=== PATIENT | female | born 1950 | race Two or more races ===

== ENCOUNTER 2018-10-20 06:59 | Emergency (ER) | payer OTHER ==
[~2018-10-20] VITALS: Ht 157.5 cm; Wt 82.6 kg
[~2018-10-20 06:59] MED LIST: LISINOPRIL20 MG; NORVASC2.5 M1; ZESTRIL2.5 MG
[2018-10-20] MEDS ORDERED: SKELAXIN800 MG PO (13:28)
[2018-10-20] MEDS ORDERED: KETO10TA2 PO (13:28)
== END 2018-10-20 13:48 | disposition home or self-care (01) ==
LOC: ER 06:59
DX: M25.561 Pain in right knee (principal); M79.661 Pain in right lower leg

== ENCOUNTER 2019-05-24 07:23 | Emergency (ER) | payer OTHER ==
[~2019-05-24] VITALS: Ht 160 cm; Wt 86.2 kg
[~2019-05-24 07:23] MED LIST changes: +KETO10TA2 PO; +SKELAXIN800 MG PO
[2019-05-24] MEDS ORDERED: ASA81 MG (07:39)
== END 2019-05-24 12:04 | disposition home or self-care (01) ==
LOC: ER 07:23
DX: M25.561 Pain in right knee (principal); I82.491 Acute embolism and thrombosis of other specified deep vein of right lower extremity; I87.2 Venous insufficiency (chronic) (peripheral)

== ENCOUNTER → 2019-08-14 | Emergency (ER) | payer OTHER ==
[~2019-08-14] VITALS: Ht 160 cm; Wt 88.0 kg
[~2019-08-14] MED LIST changes: +ASA81 MG; +ULTRACET PO
== END | disposition home or self-care (01) ==
LOC: ER 02:01
DX: M75.101 Unspecified rotator cuff tear or rupture of right shoulder, not specified as traumatic (principal)

== ENCOUNTER → 2019-08-16 | Outpatient (CLI) | payer OTHER | END | disposition home or self-care (01) | LOC: RAD 09:21 | DX: R07.89 Other chest pain (principal) ==

== ENCOUNTER 2019-11-02 08:38 | Outpatient (CLI) | payer OTHER | END 2019-11-02 09:00 | disposition home or self-care (01) | LOC: WOUND MED 08:38 | PROVIDERS: ATTEND Specialist | DX: L98.492 Non-pressure chronic ulcer of skin of other sites with fat layer exposed (principal) | CPT/HCPCS: G0463; A4554; A4930; A6216; A6219 ==

== ENCOUNTER 2019-11-06 07:28 | Outpatient (CLI) | payer OTHER | END 2019-11-06 08:10 | disposition home or self-care (01) | LOC: WOUND MED 07:28 | PROVIDERS: ATTEND Specialist | DX: L98.492 Non-pressure chronic ulcer of skin of other sites with fat layer exposed (principal) | CPT/HCPCS: 97602; A4554; A4930; A6216; A6219 ==

== ENCOUNTER 2019-11-09 08:06 | Outpatient (CLI) | payer OTHER | END 2019-11-09 09:44 | disposition home or self-care (01) | LOC: WOUND MED 08:06 | PROVIDERS: ATTEND Specialist | DX: L98.492 Non-pressure chronic ulcer of skin of other sites with fat layer exposed (principal) | CPT/HCPCS: 11042; A4554; A4930; A6216; A6219 ==

== ENCOUNTER 2019-11-13 08:31 | Outpatient (CLI) | payer OTHER | END 2019-11-13 09:00 | disposition home or self-care (01) | LOC: WOUND MED 08:31 | PROVIDERS: ATTEND Specialist | DX: L98.492 Non-pressure chronic ulcer of skin of other sites with fat layer exposed (principal) | CPT/HCPCS: 97602; A4554; A4930; A6216; A6219 ==

== ENCOUNTER 2019-11-16 07:40 | Outpatient (CLI) | payer OTHER | END 2019-11-16 09:00 | disposition home or self-care (01) | LOC: WOUND MED 07:40 | PROVIDERS: ATTEND Specialist | DX: L98.492 Non-pressure chronic ulcer of skin of other sites with fat layer exposed (principal) | CPT/HCPCS: 11042; A4554; A4930; A6216; A6219 ==

== ENCOUNTER 2019-11-20 09:04 | Outpatient (CLI) | payer OTHER | END 2019-11-20 10:44 | disposition home or self-care (01) | LOC: WOUND MED 09:04 | PROVIDERS: ATTEND Specialist | DX: L98.492 Non-pressure chronic ulcer of skin of other sites with fat layer exposed (principal) | CPT/HCPCS: 97602; A4554; A4930; A6216; A6219 ==

== ENCOUNTER 2019-11-23 07:26 | Outpatient (CLI) | payer OTHER | END 2019-11-23 11:43 | disposition home or self-care (01) | LOC: WOUND MED 07:26 | PROVIDERS: ATTEND Specialist | DX: L98.492 Non-pressure chronic ulcer of skin of other sites with fat layer exposed (principal) | CPT/HCPCS: 11042; A4554; A4930; A6216; A6219 ==

== ENCOUNTER 2019-11-27 11:16 | Outpatient (CLI) | payer OTHER | END 2019-11-27 12:30 | disposition home or self-care (01) | LOC: WOUND MED 11:16 | PROVIDERS: ATTEND Specialist | DX: L98.492 Non-pressure chronic ulcer of skin of other sites with fat layer exposed (principal) | CPT/HCPCS: 97602; A4554; A4930; A6216; A6219 ==

== ENCOUNTER 2019-12-07 08:02 | Outpatient (CLI) | payer OTHER | END 2019-12-07 09:00 | disposition home or self-care (01) | LOC: WOUND MED 08:02 | PROVIDERS: ATTEND Specialist | DX: L98.492 Non-pressure chronic ulcer of skin of other sites with fat layer exposed (principal) | CPT/HCPCS: G0463; A4554; A4930; A6216 ==

== ENCOUNTER 2019-12-12 10:11 | Outpatient (CLI) | payer OTHER | END 2019-12-12 10:27 | disposition home or self-care (01) | LOC: SONOGRAMA 10:11 | PROVIDERS: ATTEND Physical Medicine & Rehabilitation | DX: M75.121 Complete rotator cuff tear or rupture of right shoulder, not specified as traumatic (principal); M75.122 Complete rotator cuff tear or rupture of left shoulder, not specified as traumatic ==

== ENCOUNTER 2020-05-28 07:23 | Outpatient (CLI) | payer OTHER | END 2020-05-28 10:00 | disposition home or self-care (01) | LOC: WOUND MED 07:23 | PROVIDERS: ATTEND Specialist | DX: L97.512 Non-pressure chronic ulcer of other part of right foot with fat layer exposed (principal) | CPT/HCPCS: G0463; A4554; A4930; A6196; A6216; A6219 ==

== ENCOUNTER 2020-05-31 07:01 | Outpatient (CLI) | payer OTHER | END 2020-05-31 08:00 | disposition home or self-care (01) | LOC: WOUND MED 07:01 | PROVIDERS: ATTEND Specialist | DX: L97.512 Non-pressure chronic ulcer of other part of right foot with fat layer exposed (principal) | CPT/HCPCS: 97602; A4554; A4930; A6196; A6216; A6219 ==

== ENCOUNTER 2020-06-04 08:11 | Outpatient (CLI) | payer OTHER | END 2020-06-04 09:30 | disposition home or self-care (01) | LOC: WOUND MED 08:11 | PROVIDERS: ATTEND Specialist | DX: L97.512 Non-pressure chronic ulcer of other part of right foot with fat layer exposed (principal) | CPT/HCPCS: 11042; A4554; A4930; A6216; A6219 ==

== ENCOUNTER 2020-06-07 07:15 | Outpatient (CLI) | payer OTHER | END 2020-06-07 08:00 | disposition home or self-care (01) | LOC: WOUND MED 07:15 | PROVIDERS: ATTEND Specialist | DX: L97.512 Non-pressure chronic ulcer of other part of right foot with fat layer exposed (principal) | CPT/HCPCS: 97602; A4554; A4930; A6196; A6216; A6219 ==

== ENCOUNTER 2020-06-11 07:29 | Outpatient (CLI) | payer OTHER | END 2020-06-11 08:30 | disposition home or self-care (01) | LOC: WOUND MED 07:29 | PROVIDERS: ATTEND Specialist | DX: L97.512 Non-pressure chronic ulcer of other part of right foot with fat layer exposed (principal) | CPT/HCPCS: 11042; A4554; A4930; A6212; A6216; A6219 ==

== ENCOUNTER 2020-06-14 06:14 | Outpatient (CLI) | payer OTHER | END 2020-06-14 08:00 | disposition home or self-care (01) | LOC: WOUND MED 06:14 | PROVIDERS: ATTEND Specialist | DX: L97.512 Non-pressure chronic ulcer of other part of right foot with fat layer exposed (principal) | CPT/HCPCS: 97602; A4554; A4930; A6216; A6219 ==

== ENCOUNTER 2020-06-18 06:58 | Outpatient (CLI) | payer OTHER | END 2020-06-18 08:00 | disposition home or self-care (01) | LOC: WOUND MED 06:58 | PROVIDERS: ATTEND Specialist | DX: L97.512 Non-pressure chronic ulcer of other part of right foot with fat layer exposed (principal) | CPT/HCPCS: 11042; A4554; A4930; A6212; A6216; A6219 ==

== ENCOUNTER 2020-06-21 07:03 | Outpatient (CLI) | payer OTHER | END 2020-06-21 08:33 | disposition home or self-care (01) | LOC: WOUND MED 07:03 | PROVIDERS: ATTEND Specialist | DX: L97.512 Non-pressure chronic ulcer of other part of right foot with fat layer exposed (principal) | CPT/HCPCS: 97602; A4554; A4930; A6216; A6219 ==

== ENCOUNTER 2020-06-25 07:15 | Outpatient (CLI) | payer OTHER | END 2020-06-25 08:00 | disposition home or self-care (01) | LOC: WOUND MED 07:15 | PROVIDERS: ATTEND Specialist | DX: L97.512 Non-pressure chronic ulcer of other part of right foot with fat layer exposed (principal) | CPT/HCPCS: 11042; A4554; A4930; A6212; A6216 ==

== ENCOUNTER 2020-07-02 09:17 | Outpatient (CLI) | payer OTHER | END 2020-07-02 10:00 | disposition home or self-care (01) | LOC: WOUND MED 09:17 | PROVIDERS: ATTEND Specialist | DX: L97.512 Non-pressure chronic ulcer of other part of right foot with fat layer exposed (principal) | CPT/HCPCS: 11042; A4554; A4930; A6212; A6216; A6219 ==

== ENCOUNTER 2020-07-09 08:39 | Outpatient (CLI) | payer OTHER | END 2020-07-09 09:00 | disposition home or self-care (01) | LOC: WOUND MED 08:39 | PROVIDERS: ATTEND Specialist | DX: L97.512 Non-pressure chronic ulcer of other part of right foot with fat layer exposed (principal) | CPT/HCPCS: G0463; A4554; A4930; A6216 ==

== ENCOUNTER 2020-11-05 09:26 | Emergency (ER) | payer OTHER ==
[~2020-11-05] VITALS: Ht 157.5 cm; Wt 87.1 kg
[2020-11-05] MEDS ORDERED: AMOX-CLAV 875-1 EACH PO (13:35)
[2020-11-05] MEDS ORDERED: TORADOL60 MG IM (13:35)
== END 2020-11-05 13:37 ==
LOC: ER 09:26
DX: K11.20 Sialoadenitis, unspecified (principal); B34.9 Viral infection, unspecified

== ENCOUNTER 2020-12-20 10:08 | Outpatient (CLI) | payer OTHER ==
[~2020-12-20 10:08] MED LIST changes: +AMOX-CLAV 875-1 EACH PO; +TORADOL60 MG IM
== END 2021-01-04 10:09 | disposition home or self-care (01) ==
LOC: WOUND MED 10:08
PROVIDERS: ATTEND Specialist
DX: E11.621 Type 2 diabetes mellitus with foot ulcer (principal); L97.522 Non-pressure chronic ulcer of other part of left foot with fat layer exposed; R60.0 Localized edema
CPT/HCPCS: 11042; A4554; A4930; A6216; A6219

== ENCOUNTER 2022-06-18 10:28 | Outpatient (CLI) | payer OTHER | END 2022-06-18 10:34 | disposition home or self-care (01) | LOC: RAD 10:28 | PROVIDERS: ATTEND Ophthalmology | DX: H25.011 Cortical age-related cataract, right eye (principal); Z98.41 Cataract extraction status, right eye ==

== ENCOUNTER 2022-12-25 07:53 | Outpatient (CLI) | payer OTHER | END 2022-12-25 07:55 | disposition home or self-care (01) | LOC: EKG 07:53 | PROVIDERS: ATTEND Ophthalmology | DX: I11.9 Hypertensive heart disease without heart failure (principal) ==

== ENCOUNTER 2023-12-30 05:22 | Emergency (ER) | payer OTHER ==
[~2023-12-30] VITALS: Ht 157.5 cm; Wt 85.7 kg
[2023-12-30] MEDS ORDERED: METFORMIN HCL500 M3 PO (05:47)
[2023-12-30] MEDS ORDERED: KETOROLAC TROMETHAMINE 60 MG VIAL IM STA (07:47)
[2023-12-30] MEDS ORDERED: KETOROLAC TROMETHAMINE 60 MG VIAL IM ONE (08:01)
[2023-12-30 08:22] LABS: URINE APPEARANCE Clear; URINE BILIRRUBIN Negative (NEGATIVE); URINE BLOOD Trace; URINE COLOR Yellow; URINE GLUCOSE Negative (NEGATIVE); URINE KETONE Negative (NEGATIVE); URINE LEUKOCYTE Negative; URINE NITRATE Negative; URINE PROTEIN Negative (NEGATIVE); URINE UROBILINOGEN 0.2 E.U./dl
[2023-12-30 08:25] LABS: URINE BACTERIA 127.2 uL (0.0-1933); URINE EPITHELIAL CELLS 3.5 uL (0.0-38.8); URINE WBC 6.3 uL (0.0-23.2)
[2023-12-30 08:27] LABS: URINE CAST 1.06 uL (0.0-1.40); URINE RBC 0.7 uL (0.0-20.8)
[2023-12-30 08:30] LABS: HEMOGLOBIN 12.7 g/dL (12.0-15.00); MEAN CELL VOLUME 96.2 fL (80.00-100.00); MEAN CORPUSCULAR HEMOGLOBIN 32.2 pg (27.00-32.0); MEAN CORPUSCULAR HGB CONC 33.4 g/dl (32.0-36.0); PLATELET COUNT 360 K/uL (150-450); RED BLOOD COUNT 3.95 M/uL (4.00-6.00); RED CELL DISTRIBUTION WIDTH 13.3 % (11.5-14.5)
[2023-12-30 09:06] LABS: CALCIUM 9.5 mg/dL (8.5-10.1); CREATININE SERUM 1.52 mg/dL (0.55-1.02); GFR 33.62; POTASSIUM 5.1 mEq/L (3.5-5.1)
[2023-12-30] MEDS ORDERED: BACLOFEN5 MG PO (09:49)
== END 2023-12-30 09:56 | disposition home or self-care (01) ==
LOC: ER 05:24
PROVIDERS: General Practice
DX: M54.89 Other dorsalgia (principal); M51.36 Other intervertebral disc degeneration, lumbar region; I10 Essential (primary) hypertension; E11.9 Type 2 diabetes mellitus without complications; Z79.84 Long term (current) use of oral hypoglycemic drugs; Z88.8 Allergy status to other drugs, medicaments and biological substances
CPT/HCPCS: 36415; 72100; 76775; 96372; 99284; J1885

== ENCOUNTER 2024-01-03 08:30 | Emergency (ER) | payer OTHER ==
[~2024-01-03] VITALS: Ht 157.5 cm; Wt 85.7 kg
[~2024-01-03 08:30] MED LIST changes: +BACLOFEN5 MG PO; +METFORMIN HCL500 M3 PO
[2024-01-03] MEDS ORDERED: DEXAMETHASONE SODIUM PHOSPHATE 4 MG/ML VIAL IM STA (09:57)
[2024-01-03] MEDS ORDERED: DEXAMETHASONE SODIUM PHOSPHATE 4 MG/ML VIAL ONE (10:02)
[2024-01-03] MEDS ORDERED: TRAMADOL HCL 50 MG TABLET PO STA (10:04)
[2024-01-03] MEDS ORDERED: ORPHENADRINE CITRATE 30 MG/ML AMPUL IM STA (10:05)
== END 2024-01-03 10:25 | disposition home or self-care (01) ==
LOC: ER 08:31
DX: M54.50 Low back pain, unspecified (principal); Z88.8 Allergy status to other drugs, medicaments and biological substances
CPT/HCPCS: 96372; 99282; J1100

== ENCOUNTER 2024-12-10 00:49 | Emergency (ER) | payer OTHER ==
[~2024-12-10] VITALS: Ht 157.5 cm; Wt 84.4 kg
[2024-12-10] MEDS ORDERED: DEXAMETHASONE SODIUM PHOSPHATE 4 MG/ML VIAL ONE (01:43)
[2024-12-10] MEDS ORDERED: KETOROLAC TROMETHAMINE 60 MG VIAL IM ONE (01:43)
[2024-12-10] MEDS ORDERED: DEXAMETHASONE SODIUM PHOSPHATE 4 MG/ML VIAL IM STA (01:44)
[2024-12-10] MEDS ORDERED: KETOROLAC TROMETHAMINE 60 MG VIAL IM STA (01:44)
== END 2024-12-10 02:00 | disposition home or self-care (01) ==
LOC: ER 00:56
DX: M62.830 Muscle spasm of back (principal); Z88.8 Allergy status to other drugs, medicaments and biological substances
CPT/HCPCS: 96372; 99282; J1100; J1885

== ENCOUNTER 2025-02-19 14:09 | Inpatient (IN) | payer OTHER ==
[~2025-02-19] VITALS: Ht 160 cm; Wt 80.3 kg
[2025-02-19] MEDS ORDERED: NORVASC5 MG PO (15:38)
[2025-02-19] MEDS ORDERED: METFORMIN HCL500 M3 (15:39)
[2025-02-19] MEDS ORDERED: EZALLOR SPRINKLE5 MG PO (15:39)
--- NOTE | 2025-02-19 15:40 | NUR ---
SE RECIBE PACIENTE ALERTA Y ORIENTADA X3 REFIERE ALDOR EN PECHO Y CALAMBRE EN MANO IZQUIERDA. SE REALIZA EKG Y SE PRESENTA A PERSONAL MEDICO. SE UBICA PARA EVALUACION MEDICA.
[2025-02-19] MEDS ORDERED: FAMOTIDINE/PF 20 MG/2 ML VIAL IV ONE (17:15)
[2025-02-19] MEDS ORDERED: FAMOTIDINE/PF 20 MG/2 ML VIAL ONE (17:32)
[2025-02-19 18:10] LABS: BASO % 0.5 % (0.1-1.2); EOS # 0.09 (0.04-0.54); EOS % 0.9 % (0.7-7.0); LYMPH # 2.66 (1.18-3.74); LYMPH % 26.1 % (19.3-53.1); MEAN PLATELET VOLUME 9.80 fl (9.4-12.4); MONO # 0.66 (0.24-0.82); MONO % 6.5 % (4.7-12.5); NEUT # 6.73 (1.56-6.13); NEUT % 65.8 % (34.0-71.1); RED CELL DISTRIBUTION WIDTH 12.8 % (11.6-14.4)
[2025-02-19 18:34] LABS: ALT/SGPT 18.0 U/L (12-78); AST/SGOT 16.0 U/L (15-37); BILIRUBIN TOTAL 0.34 mg/dL (0.3-1.2); BUN CREA RATIO 25.0 (7.0-25.0); CREATININE SERUM 1.51 mg/dL (0.55-1.02); GFR 33.69; GLOBULINA 3.3 G/DL (2.4-3.5); GLUCOSE FASTING 115.0 mg/dL (65-100); OSMOLALITY SERUM 293.0 MOSM/KG (275-295)
[2025-02-19] MEDS ORDERED: INSULIN LISPRO 1,000 UNIT/10 ML UNITS SUBCUTANEO PRN (21:15)
[2025-02-19] MEDS ORDERED: DEXTROSE 50 % IN WATER 0.5 G/ML DISP.SYRIN IV PRN (21:15)
[2025-02-19] MEDS ORDERED: SODIUM POLYSTYRENE SULFONATE 30G/8 TSP PO ONE (21:30)
[2025-02-19 22:00] VITALS: BP 139/81; O2SAT 100
[2025-02-20 02:00] VITALS: BP 120/64; O2SAT 100
[2025-02-20 06:31] LABS: INR 1.06
[2025-02-20 06:34] LABS: BUN CREA RATIO 26.0 (7.0-25.0); CREATININE SERUM 1.41 mg/dL (0.55-1.02); GFR 36.46; GLUCOSE FASTING 113.0 mg/dL (65-100); OSMOLALITY SERUM 293.0 MOSM/KG (275-295)
[2025-02-20 06:54] LABS: COVID-19 AG NEGATIVE (NEGATIVE)
[2025-02-20 08:54] LABS: URINE APPEARANCE Clear; URINE BILIRRUBIN Negative (NEGATIVE); URINE BLOOD Negative; URINE COLOR Yellow; URINE GLUCOSE Negative (NEGATIVE); URINE KETONE Negative (NEGATIVE); URINE LEUKOCYTE Negative; URINE NITRATE Negative; URINE PROTEIN Negative (NEGATIVE); URINE UROBILINOGEN 0.2 E.U./dl
[2025-02-20 08:55] LABS: URINE BACTERIA 26.3 uL (0.0-1933); URINE EPITHELIAL CELLS 3.0 uL (0.0-38.8); URINE WBC 6.7 uL (0.0-23.2)
[2025-02-20] MEDS ORDERED: ASPIRIN 81 MG TAB.CHEW PO SCH (09:00)
[2025-02-20] MEDS ORDERED: 0.9 % SODIUM CHLORIDE 1,000 ML IV SCH (09:00)
[2025-02-20] MEDS ORDERED: AMLODIPINE BESYLATE 5 MG TABLET PO SCH (09:00)
[2025-02-20] MEDS ORDERED: ENALAPRIL MALEATE 10 MG TABLET PO SCH (09:00)
[2025-02-20 09:45] VITALS: BP 145/62; O2SAT 100
[2025-02-20 09:52] LABS: URINE CAST 0.87 uL (0.0-1.40); URINE RBC 0.7 uL (0.0-20.8)
[2025-02-20 17:16] VITALS: BP 129/60; O2SAT 100
[2025-02-21 01:24] VITALS: BP 92/50; O2SAT 99
[2025-02-21 06:36] LABS: BUN CREA RATIO 22.0 (7.0-25.0); CREATININE SERUM 1.51 mg/dL (0.55-1.02); GFR 33.69; GLUCOSE FASTING 127.0 mg/dL (65-100); OSMOLALITY SERUM 294.0 MOSM/KG (275-295)
[2025-02-21 08:00] VITALS: BP 119/63; O2SAT 99
== END 2025-02-21 17:44 | disposition home or self-care (01) | DRG 641 ==
LOC: ER 14:10 → MEDI 21:38
PROVIDERS: General Practice; ADMIT Student in an Organized Health Care Education/Training Program; ATTEND Student in an Organized Health Care Education/Training Program
PROC: 4A12X4Z Monitoring of Cardiac Electrical Activity, External Approach (ICD-10-PCS; principal; 2025-02-20)
PROC: B246ZZZ Ultrasonography of Right and Left Heart (ICD-10-PCS; 2025-02-20)
DX: E87.5 Hyperkalemia (principal); N17.9 Acute kidney failure, unspecified; N18.9 Chronic kidney disease, unspecified